=== PATIENT | male | born 1995 | race Caucasian/White ===

== ENCOUNTER 2017-06-02 06:40 | Emergency (ER) | payer OTHER ==
[~2017-06-02] VITALS: Ht 165.1 cm; Wt 54.4 kg
[2017-06-02 06:41] VITALS: BP 122/75
[2017-06-02 07:15] VITALS: BP 122/75
== END 2017-06-02 07:16 ==
LOC: MED 06:40
DX: Z02.89 Encounter for other administrative examinations (principal)